=== PATIENT | male | born 1985 | race Caucasian/White ===

== ENCOUNTER 2019-07-19 08:59 | Emergency (ER) | payer OTHER ==
[~2019-07-19] VITALS: Ht 182.9 cm; Wt 113.4 kg
[~2019-07-19 08:59] MED LIST: ALEVE220 MG PO; FLOMAX0.4 MG PO; TOBREX5 ML OP; VICODIN ES 7.51 EACH PO
[2019-07-19] MEDS ORDERED: NORCO 5-325 TA1 EAC1 PO (09:24)
[2019-07-19] MEDS ORDERED: GENTAK5 ML INTRAOCULR (09:24)
[2019-07-19 10:04] VITALS: BP 140/73
== END 2019-07-19 10:05 | disposition home or self-care (01) ==
LOC: M.ERS 08:59
DX: S05.01XA Injury of conjunctiva and corneal abrasion without foreign body, right eye, initial encounter (principal); F17.210 Nicotine dependence, cigarettes, uncomplicated; W22.8XXA Striking against or struck by other objects, initial encounter; Y93.89 Activity, other specified; Y92.89 Other specified places as the place of occurrence of the external cause; Y99.8 Other external cause status